=== PATIENT | male | born 1970 | race Caucasian/White ===

== ENCOUNTER 2016-06-16 13:38 | Emergency (ER) | payer MEDICAID ==
[~2016-06-16 13:38] MED LIST: HYDROCODONE-APA1 TAB PO; PROTONIX40 MG PO; ROBAXIN-750750 MG PO; XANAX1 MG PO
== END 2016-06-16 16:04 | disposition home or self-care (01) ==
LOC: D.ER 13:38
DX: S90.31XA Contusion of right foot, initial encounter (principal); W22.8XXA Striking against or struck by other objects, initial encounter; F17.200 Nicotine dependence, unspecified, uncomplicated